=== PATIENT | male | born 1970 | race Caucasian/White ===

== ENCOUNTER 2017-03-03 14:15 | Inpatient (IN) | payer BC ==
[~2017-03-03] VITALS: Ht 180.3 cm; Wt 115.7 kg
--- NOTE | 2017-03-03 15:09 | NUR ---
RECEIVED PATIENT TO ROOM [address] JUÁREZ'S OFFICE. PATIENT IS AWAKE, ALERT, AND ORIENTED X4. WITH PATIENT. PATIENT STATES HE HAS NOT HAD A BOWEL MOVEMENT IN "4 DAYS OR MORE". PATIENT'S STATES PATIENT HAS NOT HAD A BM SINCE 02-26-17. ORIENTED PATIENT TO ROOM AND CALL LIGHT. PATIENT STATES HE WENT TO THE ER OVER THE WEEKEND AND HE HAS A KIDNEY STONE. PATIENT STATES HIS PAIN HURTS WORSE IN HIS BELLY BECAUSE HE CAN NOT GO TO THE BATHROOM. WILL REVIEW PATIENT'S NEW ORDERS.
[2017-03-03 15:47] LABS: BASOPHILS 0.1 % (0-2); EOSINOPHILS 0.1 % (0-7); HEMATOCRIT 41.6 % (42.0-54.0); HEMOGLOBIN 14.3 g/dL (13.5-17.5); IMMATURE GRANULOCYTES 0.3 % (0-5); LYMPHOCYTES 9.6 % (15-50); MCH 31.2 pg (26.0-34.0); MCHC 34.4 g/dL (31.0-37.0); MCV 90.8 fL (80.0-100.0); MONOCYTES 10.8 % (2-11); NEUTROPHILS 79.1 % (40-80); PLATELET COUNT 236 10x3/uL (130-400); RBC 4.58 10x6/uL (4.20-6.10); RDW 12.8 % (11.5-14.5); WBC 13.5 10x3/uL (4.8-10.8)
--- NOTE | 2017-03-03 16:00 | NUR ---
PATIENT STANDING IN ROOM. ASSISTED PATIENT BACK TO HIS BED. SCHEDULED DULCOLAX SUPPOSITORIES AND MINERAL OIL ENEMA GIVEN RECTALLY TO PATIENT. PATIENT TOLERATED WELL. WILL MONITOR PATIENT. CALL LIGHT IN PATIENT'S REACH.
[2017-03-03 16:24] VITALS: BP 137/86
[2017-03-03 16:33] LABS: ALBUMIN 3.9 g/dL (3.4-5.0); ANION GAP 15.1 mmol/L (8-16); BILIRUBIN - TOTAL 0.9 mg/dL (0.2-1.3); CALCIUM 8.9 mg/dL (8.5-10.1); CARBON DIOXIDE 27.9 mmol/L (21.0-32.0); CREATININE - SERUM 1.8 mg/dL (0.6-1.3); PROTEIN - SERUM 6.8 g/dL (6.4-8.2)
[2017-03-03 17:48] VITALS: BP 137/86; BMI 35.6
[2017-03-03 19:00] VITALS: BP 118/70
[2017-03-03 23:32] LABS: APPEARANCE CLEAR (CLEAR); BILIRUBIN NEGATIVE (NEGATIVE); COLOR STRAW (YELLOW); GLUCOSE NEGATIVE (NEGATIVE); KETONE NEGATIVE (NEGATIVE); LEUKOCYTE ESTERASE NEGATIVE (NEGATIVE); NITRITE NEGATIVE (NEGATIVE); PROTEIN NEGATIVE (NEGATIVE); SPECIFIC GRAVITY 1.005 (1.005-1.020); UROBILINOGEN NORMAL (NORMAL)
[2017-03-03 23:33] LABS: WHITE CELLS - URINE NSEEN /hpf (0-5)
[2017-03-03 23:34] LABS: BACTERIA NONE SEEN /hpf (NONE SEEN); EPITHELIAL CELLS 0-5 /hpf (0-5); RED CELLS - URINE 0-5 /hpf (0-5)
[2017-03-04 04:00] VITALS: BP 108/60
[2017-03-04 05:04] LABS: BASOPHILS 0.2 % (0-2); EOSINOPHILS 0.2 % (0-7); HEMATOCRIT 38.1 % (42.0-54.0); HEMOGLOBIN 12.9 g/dL (13.5-17.5); IMMATURE GRANULOCYTES 0.2 % (0-5); LYMPHOCYTES 14.2 % (15-50); MCH 31.4 pg (26.0-34.0); MCHC 33.9 g/dL (31.0-37.0); MCV 92.7 fL (80.0-100.0); MEAN PLATELET VOLUME 9.3 fL (7.4-10.4); MONOCYTES 12.7 % (2-11); NEUTROPHILS 72.5 % (40-80); PLATELET COUNT 228 10x3/uL (130-400); RBC 4.11 10x6/uL (4.20-6.10); WBC 12.7 10x3/uL (4.8-10.8)
[2017-03-04 05:20] LABS: ALBUMIN 3.1 g/dL (3.4-5.0); ANION GAP 9.1 mmol/L (8-16); CALCIUM 8.2 mg/dL (8.5-10.1); CARBON DIOXIDE 29.8 mmol/L (21.0-32.0); CREATININE - SERUM 1.5 mg/dL (0.6-1.3); POTASSIUM - SERUM 3.9 mmol/L (3.5-5.1); PROTEIN - SERUM 6.4 g/dL (6.4-8.2)
--- NOTE | 2017-03-04 08:17 | NUR ---
AWAKE AND ALERT. ORIENTED X3. NO C/O AT THIS TIME. LUNGS ARE CLEAR BILATERALLY, NO COUGH NOTED. SKIN IS INTACT WITHOUT REDNESS. IV TO RIGHT HAND PATENT WITHOUT REDNESS AT INSERTION SITE. REPORTS PAIN IMPROVED BUT STILL NO BM. WILL CONTINUE TO MONITOR.
[2017-03-04 08:30] VITALS: BP 111/57
--- NOTE | 2017-03-04 10:00 | NUR ---
UP TO BR PER SELF. DENIES NEEDS. FAMILY AT BEDSIDE.
--- NOTE | 2017-03-04 12:00 | NUR ---
NO CHANGES AT THIS TIME.
[2017-03-04 12:42] VITALS: Ht 180.3 cm; Wt 115.7 kg
--- NOTE | 2017-03-04 13:50 | NUR ---
OFF UNIT VIA BED FOR PROCEDURE.
--- NOTE | 2017-03-04 16:00 | NUR ---
PT DENIES PAIN OR COMPLAINTS. PT WAS A TIVA PT.
[2017-03-04 16:15] VITALS: BP 131/72
--- NOTE | 2017-03-04 16:30 | NUR ---
RETURNED FROM PROCEDURE. NO C/O AT THIS TIME. AT BEDSIDE.
[2017-03-04] MEDS ORDERED: ZOFRAN4 MG PO (16:53)
[2017-03-04] MEDS ORDERED: FLOMAX0.4 MG PO (16:53)
[2017-03-04] MEDS ORDERED: MICARDIS40 MG PO (16:54)
[2017-03-04] MEDS ORDERED: HYDROCODONE-APA1 TAB PO (16:54)
[2017-03-04] MEDS ORDERED: NORVASC5 MG PO (16:54)
--- NOTE | 2017-03-04 17:45 | NUR ---
DISCHARGED TO HOME AMBULATORY [facility] . DISCHARGE INSTRUCTIONS GIVEN BOTH VERBALLY AND WRITTEN. ALL QUESTIONS ANSWERED. PATIENT AND VERBALIZED UNDERSTANDING OF SAME. NO NEW PRESCRIPTIONS NEEDED. IV TO RIGHT HAND D/C WITH CATHETER INTACT. ATE MOST OF SUPPER PRIOR TO DISCHARGE HOME.
== END 2017-03-04 17:45 | disposition home or self-care (01) | DRG 670 ==
LOC: D.MS 14:15 → OBSVTIME 15:10 → D.MS 03-04 11:30 → D.M3 03-04 13:46 → D.MS 03-04 13:47
PROVIDERS: Urology; ADMIT Family Medicine
PROC: 0TC68ZZ Extirpation of Matter from Right Ureter, Via Natural or Artificial Opening Endoscopic (ICD-10-PCS; principal; 2017-03-04 13:00)
PROC: 0T768DZ Dilation of Right Ureter with Intraluminal Device, Via Natural or Artificial Opening Endoscopic (ICD-10-PCS; 2017-03-04 13:00)
DX: N20.1 Calculus of ureter (principal); K59.00 Constipation, unspecified

== ENCOUNTER 2017-03-07 13:53 | Day surgery (SDC) | payer BC ==
[~2017-03-07] VITALS: Ht 180.3 cm; Wt 113.4 kg
[~2017-03-07 13:53] MED LIST: FLOMAX0.4 MG PO; HYDROCODONE-APA1 TAB PO; MICARDIS40 MG PO; NORVASC5 MG PO; ZOFRAN4 MG PO
[2017-03-07 14:33] VITALS: BP 139/84; Ht 180.3 cm; Wt 113.4 kg
--- NOTE | 2017-03-07 15:11 | NUR ---
1500 DR. DUDLEY ROUNDS ON PT.
--- NOTE | 2017-03-07 18:01 | NUR ---
1556 BACK FROM STENT REMOVAL AND CYSTOSCOPY. RESP EVEN AND NONLABORED. SLEEPY AND NO COS OF PAIN.
--- NOTE | 2017-03-07 18:05 | NUR ---
1626 MORE ALERT FLUIDS ENCOURAGED AND FULL LIQUIDS SERVED. VOIDED BLOODY URINE.
--- NOTE | 2017-03-07 18:08 | NUR ---
1656 IV DCD CATHETER INTACT. DISCHARGE INSTRUCTIONS GIVEN.
--- NOTE | 2017-03-07 18:09 | NUR ---
1700 TO HOME VIA W/C WITH .
== END 2017-03-07 17:00 | disposition home or self-care (01) ==
LOC: D.OPS 13:53
DX: T19.8XXA Foreign body in other parts of genitourinary tract, initial encounter (principal); I10 Essential (primary) hypertension; Z01.812 Encounter for preprocedural laboratory examination

== ENCOUNTER → 2019-12-17 08:28 | Outpatient (CLI) | payer BC ==
[2017-03-07 14:33] VITALS: BMI 34.9
== END | disposition home or self-care (01) ==
LOC: D.HCCECHO 08:28
PROVIDERS: ATTEND Internal Medicine Cardiovascular Disease
DX: I10 Essential (primary) hypertension (principal)

== ENCOUNTER 2019-12-30 06:13 | Outpatient (CLI) | payer BC ==
[~2019-12-30] VITALS: Ht 180.3 cm; Wt 117.3 kg
--- NOTE | ~2019-12-30 | HEMODYNAMI ---
PATIENT:KENYON FELIZ MEDICAL RECORD: [id number] : 72 LOCATION:D.CAT ADMISSION DATE: 12/30/19 Generatedon:12/30/20198:43 Patient name: KENYON FELIZ Patient #: [id number] SSN: [id number] : 1970 Date of study: 12/30/2019 Page: Of Hemodynamic Procedure Report Patient Data Patient Demographics Procedure consent was obtained First Name: KENYON Gender: Male Last Name: TRINI : 1970 Middle Initial: STELLA Age: 49 year(s) Patient #: [id number] Race: Unknown SSN: [id number] Additional ID: [id number] Contact details [address]: [address] [place] [address] State: [place] City: [place] Zip code: [address] Past Medical History Performed procedures and imaging results Date Procedure Procedure Results Comments Stress testing Positive->Intermediate with SPECT MPI risk Allergies: No known allergies Admission Admission Data Admission Date: 12/30/2019 Admission Time: 6:13 Arrival Date: 12/30/2019 Arrival Time: 0:00 Height (in.): 70.87 BSA: 1.68 (m2) Height (cm.): 180 BMI: 16.38 (kg/m2) Weight (lbs.): 117 Weight (kg.): 53.07 Lab Results Lab Result Date: 12/30/2019 Lab Result Time: 0:00 Biochemistry Name Units Result Min Max BUN mg/dl 15 --(--*-)-- 7 18 Creatinine mg/dl 1.1 --(--*-)-- 0.6 1.3 eGFR ml/min 76.79993 *-(----)-- 90 120 NONAFRICAN CBC Name Units Result Min Max Hematocrit % 44 --(*---)-- 42 54 Hemoglobin g/dl 15.2 --(-*--)-- 13.5 17.5 Procedure Procedure Types Cath Procedure Diagnostic Procedure C LHC w/Coronaries FFR/IVUS FFR Initial Sedation Charges Moderate Sedation up to 30 minutes PCI Procedure Hemochron ACT Test Procedure Description Procedure Date Procedure Date: 12/30/2019 Procedure Start Time: 8:14 Procedure End Time: 8:40 Procedure Staff Name Function Darrell Louise MD Performing Physician María Bazzi RT Scrub Rama Mcgovern RN Nurse Shellie Read RT Monitor Procedure Data Cath Procedure Fluoroscopy Diagnostic fluoroscopy Total fluoroscopy Time: 5.5 time: 5.5 min min Diagnostic fluoroscopy Total fluoroscopy dose: dose: 1041 mGy 1041 mGy Contrast Material Contrast Material Type Amount (ml) Isovue 300 93 Entry Location Entry Primary Successful Side Size Upsize Upsize Entry Closure Succes sful Closure Location (Fr) 1 (Fr) 2 (Fr) Remarks Device Remarks Femoral Right 5 Fr 6 Fr Exoseal artery Short Estimated blood loss: 5 ml Diagnostic catheters Device Type Used For End Catheter Placement MULTIPACK JL 4.0 5Fr Procedure catheter MULTIPACK 3DRC 5Fr Procedure catheter MULTIPACK Pigtail 5 Fr Procedure catheter Procedure Complications No complications Procedure Medications Medication Administration Route Dosage 0.9% NaCl I.V. 100 ml/hr Oxygen etCO2 Nasal cannula 2 l/min Lidocaine 2% added to field 20 Heparin Flush Bag added to field 2 bags (1000units/500ml NS) Versed I.V. 2 mg Fentanyl I.V. 50 mcg Versed I.V. 2 mg Fentanyl I.V. 50 mcg Heparin Bolus I.V. 2000 units Hemodynamics Rest BSA: 1.68 (m2) HGB: 15.2 (g/dl) O2 Consumption: Estimated: 200.93 (ml/min) O2 Co nsumption indexed: Estimated:119.6 (ml/min/m) Heart Rate: 69 (bpm) Pressure Samples Time Site Value (mmHg) Purpose Heart Use Rate(bpm) 8:23 LV 112/3,16 Snapshot 72 8:23 AO 96/63(77) Pullback 80 Gradients Valve Time Site Site 2 Mean SEP/DFP Peak To Heart Use 1 (mmHg) (sec/min) Peak Rate (mmHg) (bpm) Aortic 8:23 LV AO 26 10 80 96/63(77) Calculations Valve P-P Mean Valve Index Valve Source Name Gradient Area Flow (cm2) Aortic 26 26 Snapshots Pre Cath Intra NCS Post Cath Vital Signs Time Heart Resp SPO2 etCO2 NIBP (mmHg) Rhythm Pain Sedation Rate (ipm) (%) (mmHg) Status Level (bpm) 8:03:06 64 20 99 33.7 129/83(96) NSR 0 (11) 10(A) , No pain 8:07:26 72 17 97 38.1 126/86(93) NSR 0 (11) 10(A) , No pain 8:11:48 70 13 98 43.3 120/80(101) NSR 0 (11) 10(A) , No pain 8:16:08 67 13 97 24.6 126/77(95) NSR 0 (11) 10(A) , No pain 8:20:26 70 13 98 42.6 119/79(91) NSR 0 (11) 9(A) , No pain 8:24:48 71 13 98 40.4 115/68(91) NSR 0 (11) 9(A) , No pain 8:29:06 71 13 97 42.6 114/72(88) NSR 0 (11) 9(A) , No pain 8:33:26 69 14 97 43.4 117/66(85) NSR 0 (11) 9(A) , No pain 8:37:41 63 17 96 40.4 116/78(95) NSR 0 (11) 10(A) , No pain Medications Time Medication Route Dose Verified Delivered Reason Notes Effectiveness by by 8:03:03 0.9% NaCl I.V. 100 Darrell Rama used for ml/hr Dani Mcgovern oil refiner 8:03:10 Oxygen etCO2 2 Darrell Rama used for Nasal l/min Dani Mcgovern procedure cannula RN 8:03:16 Lidocaine 2% added 20ml Darrell Darrell for local to vial Dani Louise MD anesthetic field 8:03:20 Heparin Flush added 2 Darrell Darrell used for Bag to bags Dani Louise MD procedure (1000units/500ml field NS) 8:08:42 Versed I.V. 2 mg Darrell Rama for sedation Fully awake @ Dani Mcgovern 8:26:58 RN 8:08:56 Fentanyl I.V. 50 Darrell Rama for sedation Fully awake @ mcg Dani Mcgovern 8:27:01 RN 8:15:04 Fentanyl I.V. 50 Darrell Rama for sedation Mostly mcg Dani Mcgovern sleeping @ RN 8:27:10 8:15:57 Versed I.V. 2 mg Darrell Rama for sedation Mostly Dani Mcgovern sleeping @ RN 8:27:12 8:26:25 Heparin Bolus I.V. 2000 Darrell Rama for verifi ed units Dani Mcgovern anticoagulation with Dr. LUIS Louise Procedure Log Time Note 7:37:53 Informed consent obtained and on chart 7:39:26 H&P Date Dictated: 12/07/2019 Within 30 days and on chart., H&P Addendum completed by physician on day of procedure. (MUST COMPLETE FOR ALL OUTPATIENTS). 7:39:32 Patient allergic to No known allergies 7:39:55 Procedure Status Elective Heart Cath (OP). 7:39:57 Time tracking: Regular hours (M-F 7:00 - 5:00) 7:40:01 Plan of Care:Hemodynamics will remain stable., Cardiac rhythm will remain stable., Comfort level will be maintained., Respiratory function will remain adequate., Patient/ family verbilizes understanding of procedure., Procedure tolerated without complication., Recovers from procedure without complications.. 7:40:03 María ANDREWS(R) sent for patient. Start room use. 7:52:05 Patient Weight : 117 lbs 7:52:07 Patient Height : 70.87 inches 7:54:37 Lab Result : BUN 15 mg/dl 7:54:37 Lab Result : eGFR NONAFRICAN 76.54292 ml/min 7:54:37 Lab Result : Creatinine 1.1 mg/dl 7:54:37 Lab Result : Hemoglobin 15.2 g/dl 7:54:37 Lab Result : Hematocrit 44 % 8:01:50 Patient received from Pre/Post Procedure Room to CCL 1 Alert and oriented. Tansferred to table in Supine position. 8:01:51 Warm blankets applied, and anahi hugger turned on for patient comfort. 8:01:51 Correct patient and procedure confirmed by team. 8:01:51 ECG and BP/O2 sat monitors applied to patient. 8:01:52 Vital chart was started 8:01:54 Baseline sample Acquired. 8:01:57 Rhythm: sinus rhythm 8:01:58 Full Disclosure recording started 8:01:59 Pre-procedure instructions explained to patient. 8:01:59 Pre-op teaching completed and patient verbalized understanding. 8:02:01 Family in patients room. 8:02:02 Patient NPO since Midnight. 8:02:04 Was the patient premedicated? No 8:02:06 Is patient on blood thinner?No 8:02:08 Patient diabetic? No. 8:02:17 Previous problem with sedation/anesthesia? No ? 8:02:19 Snore? Yes 8:02:21 Sleep apnea? No 8:02:22 Deviated septum? No 8:02:23 Opens mouth fully? No 8:02:25 Sticks out tongue? No 8:02:31 Airway obstruction? No ? 8:02:34 Dentures? No ? 8:03:03 0.9% NaCl 100 ml/hr I.V. was administered by Rama Mcgovern RN; used for procedure; Verbal order read back and verified. 8:03:03 Pre procedure: right dorsailis pedis pulse 2+ Normal; easily identifiable; not easily obliterated 8:03:10 Oxygen 2 l/min etCO2 Nasal cannula was administered by Rama Mcgovern RN; used for procedure; Verbal order read back and verified. 8:03:16 Lidocaine 2% 20ml vial added to field was administered by Darrell Louise MD; for local anesthetic; Verbal order read back and verified. 8:03:20 Heparin Flush Bag (1000units/500ml NS) 2 bags added to field was administered by Darrell Louise MD; used for procedure; Verbal order read back and verified. 8:04:25 Patient pain scale 0/10 ?. 8:04:29 Lab results completed and on chart. 8:04:38 Stress Test: yes; abnormal INFERIOR 8:05:18 Right groin area was prepped with chlora-prep and draped in sterile fashion 8:05:19 Alarms reviewed by Lauren Holman 8:05:19 Sharps counted by scrub and verified by Mitchell 8:05:33 Arrival Date: 12/30/2019 12:00:00 AM 8:08:34 --------ALL STOP TIME OUT------ 8:08:34 Final Timeout: patient, procedure, and site verified with staff and physician. All members of the team are in agreement. 8:08:36 Right groin site verified by team. 8:08:39 Fire Safety Assessment: A--An alcohol-based skin anteseptic being used preoperatively., C--Open oxygen or nitrous oxide is being used., D--An ESU, laser, or fiber-optic light is being used. 8:08:41 Physical assessment completed. ASA score P 2 - A patient with mild systemic disease as per Darrell Louise MD. 8:08:42 Versed 2 mg I.V. was administered by Rama Mcgovern RN; for sedation; Verbal order read back and verified. 8:08:44 2) 60-89 Mildly reduced kidney function, and other findings (as for stage 1) point to kidney disease. 8:08:47 Maximum allowable contrast dose (3.7 X eGFR X 0.75)211 ml. 8:08:51 Sedation plan: IV Moderate Sedation Medication:Versed, Fentanyl 8:08:56 Fentanyl 50 mcg I.V. was administered by Rama Mcgovern RN; for sedation; Verbal order read back and verified. 8:13:34 Procedure started. 8:14:01 Local anesthetic to right femoral artery with Lidocaine 2% by Darrell Louise MD.INITIAL ACCESS ONLY 8:14:08 Use device set Femoral Dx 8:14:09 ACIST Syringe (07388) opened to sterile field. 8:14:10 Bag Decanter (2002) opened to sterile field. 8:14:11 ACIST Hand Control (08842) opened to sterile field. 8:14:11 ACIST Manifold (17495) opened to sterile field. 8:14:12 Tegaderm 4 x 4 (1626W) opened to sterile field. 8:14:14 Medline Cath Pack ([id number]) opened to sterile field. 8:14:15 DIAGNOSTIC Multipack 5Fr catheter set (ZO2018) opened to sterile field. 8:14:16 SHEATH 5FR [place] (HUT232) opened to sterile field. 8:14:17 EMERALD Guide Wire (855-643) opened to sterile field. 8:15:04 Fentanyl 50 mcg I.V. was administered by Rama Mcgovern RN; for sedation; Verbal order read back and verified. 8:15:57 Versed 2 mg I.V. was administered by Rama Froilan RN; for sedation; Verbal order read back and verified. 8:16:25 A 5 Fr sheath was inserted into the Right Femoral artery 8:16:50 A MULTIPACK JL 4.0 5Fr catheter was advanced over the wire and used for Procedure. 8:20:26 LCA angiography performed. 8:20:30 Catheter removed. 8:21:20 A MULTIPACK 3DRC 5Fr catheter was advanced over the wire and used for Procedure. 8:21:34 RCA angiography performed. 8:21:45 Catheter removed. 8:21:51 ACCDominant side:Right 8:22:19 A MULTIPACK Pigtail 5 Fr catheter was advanced over the wire and used for Procedure. 8:22:58 LV gram done using ZAVALETA 8:23:01 Injector settings: Ml/sec: 10, Volume: 20, 8:23:17 LV hemodynamics recorded. 8:23:39 EF : 55 % 8:24:12 Catheter removed. 8:24:49 SHEATH 6FR [place] (OPZ512) opened to sterile field. 8:24:50 INFLATOR Merit BasixCompak (OC8120) opened to sterile field. 8:24:51 GUIDE 6FR EBU 3.75 catheter ([id number]) opened to sterile field. 8:25:03 TUBING High Pressure Extension Tubing (Dani) ([id number]) opened to sterile field. 8:25:07 [place] Verrata Plus pressure wire (60398Z) opened to sterile field. 8:25:12 BMW 300cm Straight [place] 2 wire ([id number]) opened to sterile field. 8:25:21 Sheath upsized to a 6 Fr Short. 8:26:25 Heparin Bolus 2000 units I.V. was administered by Rama Mcgovern RN; for anticoagulation; verified with Dr. Louise Verbal order read back and verified. 8:26:43 6 Fr EBU 3.75 guide catheter was inserted over the wire 8::58 Effectiveness of Versed delivered @ 8:08:42 is: Fully awake 8:27:01 Effectiveness of Fentanyl delivered @ 8:08:56 is: Fully awake 8:27:10 Effectiveness of Fentanyl delivered @ 8:15:04 is: Mostly sleeping 8:27:12 Effectiveness of Versed delivered @ 8:15:57 is: Mostly sleeping 8:28:44 FFR/IFR wire advanced. 8:33:19 Wire advanced across lesion. 8:33:27 mLAD lesion measured at .93 with IFR 8:35:38 Wire removed. 8:35:38 Guide catheter removed. 8:35:45 EXOSEAL 6Fr (EX600) opened to sterile field. 8:37:20 Sheath removed intact; hemostasis achieved with Exoseal to the Right Femoral artery. 8:37:34 Procedure ended.(Physican Out) 8:37:50 Fluoroscopy time 05.50 minutes. 8:37:54 Fluoroscopy dose: 1041 mGy 8:37:54 Flurop Dose total: 1041 8:38:00 Dose Area Product 36981 mGy/cm. 8:38:03 Contrast amount:Isovue 300 93ml. 8:38:05 Maximum allowable dose exceeded? No. 8:38:06 Sharps counted by scrub and verified by R.N. 8:38:16 Post-op/insertion site Right Femoral artery dressed using a 4 x 4 and Tegaderm. 8:38:19 Post-procedure physical assessment completed. ASA score P 2 - A patient with mild systemic disease as per Darrell Louise MD. 8:38:21 Post procedure rhythm: sinus rhythm 8:38:24 Estimated blood loss: 5 ml 8:38:25 Post procedure instruction explained to patient.Patient verbalizes understanding. 8:38:26 Patient needs reinforcement of post procedure teaching. 8:39:25 Procedure type changed to Cath procedure, Diagnostic procedure, LHC, [facility] w/Coronaries, FFR/IVUS, FFR Initial, Sedation Charges, Moderate Sedation up to 30 minutes, PCI procedure, Hemochron ACT Test 8:39:48 Procedure and supply charges have been captured, reviewed, submitted and are correct. 8:39:50 Procedure Complication : No complications 8:39:53 Vital chart was stopped 8:39:54 [facility] Findings: mild to moderate CAD (<70%) 8:39:56 Operative report dictated upon procedure completion. 8:39:56 See physician's report for complete and final results. 8:39:58 Report given to Pre/Post Procedure Room. 8:39:59 ACT drawn and resulted at 233 seconds. (normal therapeutic range 180-240 seconds). 8:40:00 Patient transfered to Pre/Post Procedure Room with Bed. 8:40:47 Procedure ended. 8:40:47 Full Disclosure recording stopped 8:40:52 End room use (Document Last) 8:42:20 End room use (Document Last) 8:42:48 End room use (Document Last) Device Usage Item Name Manufacture Quantity Catalog Hospital Part Current Minima l Lot# / Number Charge Number Stock Stock Serial# Code ACIST Acist 1 59151 457012 216220 445881 20 Syringe Medical (59198) Systems Inc Bag Microtek 1 269132 13936 473851 5 Decanter Medical Inc. () ACIST Hand Acist 1 86325 779587 421764 741269 5 Control Medical (75917) Systems Inc ACIST Acist 1 84250 330006 344478 259561 5 Manifold Medical (40426) Systems Inc Tegaderm 4 3M 1 1626W 051516 283703 516541 5 x 4 (1626W) Medline Medline 1 [id number] 150397 86620 680217 5 Cath Pack ([id number]) DIAGNOSTIC Cardinal 1 ZW4954 884017 87981 412887 30 Multipack Health 5Fr catheter set (JZ0736) SHEATH 5FR Terumo 1 EWE429 308101 666224 074319 5 [place] (EOK350) EMERALD Cardinal 1 502-455 671423 543949 569560 5 Guide Wire Health (502-455) MULTIPACK Cardinal 1 731986 5 JL 4.0 5Fr Health catheter MULTIPACK Cardinal 1 408679 5 3DRC 5Fr Health catheter MULTIPACK Cardinal 1 168678 5 Pigtail 5 Health Fr catheter SHEATH 6FR Terumo 1 OBP893 958156 461318 475875 40 [place] (QGR426) INFLATOR Merit 1 SL4716 088579 748432 445142 15 Merit Medical BasixCompak (SD7756) GUIDE 6FR Medtronic 1 [id number] 534280 86350 212653 1 EBU 3.75 catheter ([id number]) TUBING High Merit 1 HF3525Y 423631 18825 653921 10 Pressure Medical Extension Tubing (Louise) (XL2770Q) [place] South [place] 1 00396C 327506 911040511 689386 5 Verrata Plus pressure wire (70315A) BMW 300cm Barney 1 2657275 375101 334079 484985 5 Straight Vascular [place] 2 wire (8380887) EXOSEAL 6Fr Cardinal 1 EX600 522123 478566 848361 10 (EX600) Health Signature Audit [place] Stage Time Signature Unsigned Intra-Procedure 12/30/2019 Shellie Read 8:42:20 AM RT(R) Intra-Procedure 12/30/2019 Rama Mcgovern 8:42:48 AM RN Intra-Procedure 12/30/2019 Darrell Louise MD 8:43:16 AM [id number] [place] [address]
[2019-12-30] MEDS ORDERED: VYVANSE30 MG PO (06:35)
[2019-12-30] MEDS ORDERED: ANDROGEL5 GM TP (06:36)
[2019-12-30] MEDS ORDERED: MICARDIS40 MG PO (06:37)
[2019-12-30 06:50] VITALS: BP 116/80; Ht 180.3 cm; Wt 117.3 kg
[2019-12-30 07:08] LABS: BASOPHILS 0.6 % (0-2); EOSINOPHILS 3.1 % (0-7); HEMOGLOBIN 15.2 g/dL (13.5-17.5); IMMATURE GRANULOCYTES 0.4 % (0-5); LYMPHOCYTES 38.8 % (15-50); MCH 31.2 pg (26.0-34.0); MCHC 34.5 g/dL (31.0-37.0); MCV 90.3 fL (80.0-100.0); MEAN PLATELET VOLUME 8.6 fL (7.4-10.4); MONOCYTES 10.4 % (2-11); NEUTROPHILS 46.7 % (40-80); RBC 4.87 10x6/uL (4.20-6.10); RDW 12.7 % (11.5-14.5); WBC 8.2 10x3/uL (4.8-10.8)
[2019-12-30 07:28] LABS: PLATELET COUNT 280 10x3/uL (130-400)
[2019-12-30 07:32] LABS: ALT (SGPT) 41 U/L (10-68); CALC OSMOLALITY 281 mosm/kg (275-300); CALCIUM 8.4 mg/dL (8.5-10.1); CARBON DIOXIDE 22.9 mmol/L (21.0-32.0); CHLORIDE - SERUM 108 mmol/L (98-107); CHOL - HDL RATIO 4.9 ratio (2.3-4.9); CHOLESTEROL, TOTAL 170 mg/dL (0-200); CREATININE - SERUM 1.1 mg/dL (0.6-1.3); GLUCOSE 130 mg/dL (74-106); HDL CHOLESTEROL 35 mg/dL (32-96); LDL CHOLESTEROL 87 mg/dL (0-100); LDL-HDL RATIO 2.5 ratio (1.5-3.5); POTASSIUM - SERUM 3.9 mmol/L (3.5-5.1); SODIUM 140 mmol/L (136-145); TRIGLYCERIDE 240 mg/dL (30-200); UREA NITROGEN 15 mg/dL (7-18); eGFR NON AFRICAN AMERICAN 76 mL/min (90-120)
--- NOTE | 2019-12-30 08:50 | NUR ---
PT RECEIVED VIA STRETCHER FROM [facility]ATH HOUSE ATTENDANT FOR RECOVERY. PT SLEEPING, BUT VERBALLY AROUSABLE. NO C/O PAIN OR DISCOMFORT. IV PATENT INFUSING VIA L ARM PER ORDERS. PT PLACED ON 1L O2 VIA NC. CARDIAC MONITORS ON, HR NSR RATE RATE 58, BP 111/73, RR 17, SAT 97. R GROIN W 6FR EXOCELE, DRESSING CDI NO S/S HEMATOMA OR BLEEDING. LEG PINK AND WARM, PEDAL PULSES PALPABLE. PT INSTRUCTED TO KEEP HEAD ON PILLOW AND LEG STRAIGHT, HE VERBALIZED UNDERSTANDING. CALL KIMANI IN REACH, AT BS
--- NOTE | 2019-12-30 09:15 | NUR ---
PT RESTING W EYES CLOSED, R GROIN SOFT NO S/S HEMATOMA OR BLEEDING. DRESSING REMAINS CDI. VSS. CALL LIGHT IN REACH
--- NOTE | 2019-12-30 10:10 | NUR ---
PT RESTING COMFORTABLY, DENIES PAIN OR DISCOMFORT. R GROIN SOFT, DRESSING REMAINS CDI NO S/S HEMATOMA OR BLEEDING NOTED. HOB ELEVATED SLIGHTLY, PO FLUIDS GIVEN. VSS. CALL LIGHT IN REACH
--- NOTE | 2019-12-30 10:35 | NUR ---
PT SLEEPING, VSS. R GROIN SOFT, DRESSING REMAINS CDI NO S/S HEMATOMA NOTED. REMAINS AT BS. CALL LIGHT IN REACH
--- NOTE | 2019-12-30 11:15 | NUR ---
PT AMBULATED TO BR, VOIDING W/O DIFFICULITY
--- NOTE | 2019-12-30 11:15 | NUR ---
DISCHARGE INSTRUCTIONS REVIEWED W PT AND , BOTH VERBALIZED UNDERSTANDING. IV REMOVED W CATH INTACT. MONITORS AND O2 REMOVED. R GROIN SOFT, DRESSING CDI NO S/S HEMATOMA. PT UP TO DRESS FOR DISCHARGE.
--- NOTE | 2019-12-30 11:29 | NUR ---
PT DISCHARGED VIA WC TO WAITING IN PRIVATE VEHICLE. PT HAD ALL BELONGINGS AND DISCHARGE PAPERWORK IN HAND
== END 2019-12-30 11:25 | disposition home or self-care (01) ==
LOC: D.CATH 06:13
PROVIDERS: ATTEND Internal Medicine Cardiovascular Disease
DX: I25.119 Atherosclerotic heart disease of native coronary artery with unspecified angina pectoris (principal); R94.30 Abnormal result of cardiovascular function study, unspecified